=== PATIENT | female | born 1990 | race Two or more races ===

== ENCOUNTER 2018-05-20 12:05 | Inpatient (IN) | payer OTHER ==
[2018-05-20] MEDS ORDERED: AMPICILLIN SODIUM 2 GM VIAL ONE (12:39)
[2018-05-20] MEDS ORDERED: AMPICILLIN SODIUM 1 GM VIAL ONE ×2 (12:42→21:07)
[2018-05-20] MEDS: DEXTROSE 5%-LACTATED RINGERS 1,000 ML IV SCH ×2 (12:45→18:22)
[2018-05-20] MEDS ORDERED: AMPICILLIN - 2 GM in SODIUM CHLORIDE 100 ML IVPB ONE (13:00)
[2018-05-20] MEDS ORDERED: PROMETHAZINE HCL 25 MG/1 ML VIAL IVPUSH ONE (13:01)
[2018-05-20] MEDS ORDERED: BUTORPHANOL TARTRATE 1 MG/ML VIAL IVPUSH PRN (13:01)
--- NOTE | 2018-05-20 13:10 | HP ---
Past Medical History - Primary Care Physician PCP:: Carlos Mejias - Admission Chief Complaint: 38 weeks, labor History of Present Illness: 28 yo f 38 weeks, in labor cx 4 cm 80 vx -2 mi, fhr cat 1, contraction regular, moderate intensity, prental care in [facility], no complication History Source: Patient Limitations to Obtaining History: No Limitations - Past Surgical History Hx Myomectomy: No Hx Transabdominal Cerclage: No - Alcohol/Substance Use Hx Alcohol Use: No - Social History Usual Living Arrangement: Yes: With Spouse History of Recent Travel: No Home Medications - Allergies Allergies/Adverse Reactions: Allergies Allergy/AdvReac Type Severity Reaction Status Date / Time No Known Allergies Allergy Verified 05/20/18 12:35 - Home Medications Home Medications: Ambulatory Orders Ferrous Sulfate [Feosol] 325 mg PO BID 05/20/18 Vit/Iron Fum/Folic AC [ Tablet] 1 each PO DAILY 05/20/18 Review of Systems - Review of Systems Constitutional: reports: No Symptoms Eyes: reports: No Symptoms HENT: reports: No Symptoms Neck: reports: No Symptoms Cardiovascular: reports: No Symptoms Respiratory: reports: No Symptoms Gastrointestinal: reports: No Symptoms Genitourinary: reports: No Symptoms Breasts: reports: No Symptoms Reported Musculoskeletal: reports: No Symptoms Integumentary: reports: No Symptoms Neurological: reports: No Symptoms Endocrine: reports: No Symptoms Hematology/Lymphatic: reports: No Symptoms Psychiatric: reports: No Symptoms Physical Exam - Maternity Constitutional: Yes: Well Nourished, No Distress, Calm Eyes: Yes: WNL, Conjunctiva Clear, EOM Intact HENT: Yes: WNL, Atraumatic, Normocephalic Neck: Yes: WNL, Supple, Trachea Midline Cardiovascular: Yes: WNL, Regular Rate and Rhythm Breast(s): Yes: WNL - Abdominal Exam/OB Fundal Height: 38 Number of Fetuses: Single Presentation: Vertex Contractions: Yes Regularity: Regular Intensity: Mod/Strong Monitor Mode: External Heart Rate Location: [facility] Category: I - Vaginal Exam/OB Vaginal Bleediing: No Speculum Exam: No Dilatation (cm): 4 cm Effacement (%): 80 Amniotic Membrane Status: Bulging Presentation: Vertex/Position Station: -2 - Physical Exam Musculoskeletal: Yes: WNL Extremities: Yes: WNL Edema: LLE: Trace, RLE: Trace Deep Tendon Reflex Grade: Normal +2 Psychiatric: Yes: WNL Hemorrhage Risk Assessment - Risk Factors Medium Risk Factors: Yes: None High Risk Factors: Yes: None Risk Score: 1 Risk Level: Medium Risk Problem List - Problems (1) with 38 completed weeks gestation Code(s): Z3A.38 - 38 WEEKS GESTATION OF (2) Labor established Code(s): IKX2003 - Assessment/Plan admit for vaginal delivery, FHM, pain management
[2018-05-20 13:33] VITALS: BMI 31.1
[2018-05-20 13:42] LABS: INR 0.95 (0.82-1.09); PROTHROMBIN TIME (PATIENT) 10.7 SEC (9.7-13.0)
[2018-05-20 13:44] LABS: ACTIVATED PTT 23.1 SECONDS (25.2-36.5)
[2018-05-20 13:49] LABS: ANION GAP 11 (8-16); BLOOD UREA NITROGEN 6 mg/dL (7-18); CHLORIDE 104 mmol/L (98-107); CO2 22 mmol/L (21-32); CREATININE 0.8 mg/dL (0.55-1.02); GLUCOSE,RANDOM 84 mg/dL (74-106); POTASSIUM 3.6 mmol/L (3.5-5.1); SODIUM 137 mmol/L (136-145)
[2018-05-20 14:01] LABS: BASO % 0.2 % (0-2.0); EOS % 0.2 % (0-4.5); HEMATOCRIT 34.6 % (32.4-45.2); HEMOGLOBIN 11.6 GM/dL (10.7-15.3); LYMPH % 10.3 % (8-40); MCHC 33.5 g/dl (32.0-36.0); MEAN CELL VOLUME 92.5 fl (80-96); MEAN PLT VOLUME 10.6 fl (7.5-11.1); MONO % 3.3 % (3.8-10.2); PLATELET COUNT 188 K/MM3 (134-434); RBC 3.75 M/mm3 (3.60-5.2); RDW 15.9 % (11.6-15.6); WHITE BLOOD COUNT 10.4 K/mm3 (4.0-10.0)
[2018-05-20] MEDS ORDERED: TUBERCULIN PPD 5 TU/0.1ML SYRINGE (IN PATIENT USE ONLY) ID ONE (14:15)
[2018-05-20] MEDS: AMPICILLIN - 1 GM in SODIUM CHLORIDE 100 ML IVPB SCH ×2 (17:00→21:13)
[2018-05-20] MEDS: ELECTROLYTE-148 SOLN 1,000 ML IV SCH (20:00)
--- NOTE | 2018-05-20 20:02 | PN ---
Ante-Partal Exam - Subjective Subjective: Pt with painful contractions. Vital Signs: Vital Signs Temperature 98.5 F 05/20/18 18:00 Pulse Rate 99 H 05/20/18 19:00 Respiratory Rate 20 05/20/18 19:00 Blood Pressure 127/70 05/20/18 19:00 O2 Sat by Pulse Oximetry (%) Bleeding: No Headache: No Visual changes: No Right upper quadrant pain: No Pain (scale 1-10): 150 - Contractions Contractions: Yes Regularity: Regular Intensity: Mod/Strong Monitor Mode: External - Exam during Labor Heart Rate: 150 Variability: Moderate Heart Rate Location: Midline Category: I Monitor Accelerations: Present Monitor Decelerations: None Exam: Vaginal Dilatation (cm): 5 Effacement (%): 90 Amniotic Membrane Status: Intact Presentation: Vertex Station: 0 Remarks: Adequate pelvimetry - Intrapartum Hemorrhage Risk Medium Risk Factors: None High Risk Factors: None Risk Score: 0 Risk Level: Low Risk - Assessment/Plan Assessment/Plan: 28yo at EGA 38w2d in spont labor. The pt has a catgory I tracing. Fetus requires no intervention. We discussed the r/b/a of labor and pain mgt options. Pt requested epidural. Plan to monitor labor. Anesthesia consult called.
[2018-05-20] MEDS ORDERED: FENTANYL/BUPIVACAINE/NS/PF - PCEA - 50 ML DISP.SYRIN EP ONE (20:03)
[2018-05-20] MEDS: FENTANYL/BUPIVACAINE/NS/PF - PCEA - 50 ML DISP.SYRIN EP SCH (20:30)
[2018-05-20] MEDS ORDERED: NALOXONE HCL 0.4 MG/ML VIAL IVPUSH PRN (21:10)
--- NOTE | 2018-05-20 21:52 | PN ---
Ante-Partal Exam - Subjective Subjective: No complaints, s/p epidural Vital Signs: Vital Signs Temperature 98.9 F 05/20/18 21:00 Pulse Rate 88 05/20/18 21:00 Respiratory Rate 18 05/20/18 21:00 Blood Pressure 109/84 05/20/18 21:00 O2 Sat by Pulse Oximetry (%) 100 05/20/18 21:00 Bleeding: No Headache: No Visual changes: No Right upper quadrant pain: No Pain (scale 1-10): 0 - Contractions Contractions: Yes Regularity: Regular Intensity: Moderate Monitor Mode: External - Exam during Labor Heart Rate: 150 Variability: Moderate Heart Rate Location: Midline Category: I Monitor Accelerations: Absent Monitor Decelerations: Variable Exam: Vaginal Dilatation (cm): 7 Effacement (%): 90 Amniotic Membrane Status: Ruptured (AROM) Amniotic Fluid: Clear Presentation: Vertex Station: 0 - Intrapartum Hemorrhage Risk Medium Risk Factors: None High Risk Factors: None Risk Score: 0 Risk Level: Low Risk - Assessment/Plan Assessment/Plan: 28yo is spont labor progressing in active phase. Fetus requires no intervention. Continue to monitor progress.
[2018-05-20] MEDS ORDERED: OXYTOCIN 20 UNITS in 0.9% NS 20 UNIT/1,000 ML INFUS.BAG IV ONE (23:55)
[2018-05-21] MEDS: OXYTOCIN 20 UNITS in 0.9% NS 20 UNIT/1,000 ML INFUS.BAG IV SCH (00:45)
[2018-05-21] MEDS ORDERED: OXYTOCIN 20 UNITS in 0.9% NS 20 UNIT/1,000 ML INFUS.BAG IV ONE (02:40)
[2018-05-21] MEDS: AMPICILLIN - 1 GM in SODIUM CHLORIDE 100 ML IVPB SCH (02:43)
[2018-05-21] MEDS ORDERED: BENZOCAINE 20% 57 GM BOTTLE TP PRN (03:01)
[2018-05-21] MEDS ORDERED: BISACODYL 10 MG SUPP.RECT RC PRN (03:01)
[2018-05-21] MEDS ORDERED: BENZOCAINE 28 GM HEMORRHOIDAL OINTMENT TP PRN (03:01)
[2018-05-21] MEDS ORDERED: ACETAMINOPHEN 325 MG TABLET (FP) PO PRN (03:01)
[2018-05-21] MEDS ORDERED: IBUPROFEN 600 MG TABLET (FP) PO PRN (03:01)
[2018-05-21] MEDS ORDERED: WITCH HAZEL 50% (TUCKS) 40 PAD/JAR PAD TP PRN (03:01)
[2018-05-21] MEDS ORDERED: METHYLERGONOVINE MALEATE 0.2 MG/1 ML AMP IM PRN (03:01)
--- NOTE | 2018-05-21 03:01 | PN ---
Delivery - Delivery Vaginal Delivery: No Problems, Spontaneous Type of Anesthesia: Epidural Episiotomy/Laceration: None EBL (cc): 300 Delivery, Single - Stages of Labor Date 1st Stage Initiatied: 05/21/18 Time 1st Stage Initiated: 05:00 Date 2nd Stage Initiated: 05/21/18 Time 2nd Stage Initiated: 23:50 Date of Delivery: 05/21/18 Time of Delivery: 00:39 Date Placenta Delivered: 05/21/18 Time Placenta Delivered: 00:41 Placenta: Yes: Spontaneous, Normal Configuration - Condition of Infant Developer Advocate/Microsoft Access Developer Present: No Gender: Female Weight: 2.75 kg Position: Right, OA Total Hours ROM (Hrs/Mins): 2h 54m - 1 Minute Total Score: 9 5 Minutes Total Score: 9 - [place] Feeding Plan Initial Plan: Exclusive throughout hospitalization Benefits of Exclusively reinforced: Yes
[2018-05-21] MEDS: PRENATAL VITAMINS W/ FOLIC ACID TABLET (FP) PO SCH (10:43)
--- NOTE | 2018-05-22 00:47 | PN ---
Post Progress Note - Subjective Subjective: Patient without acute complaints. Reports tolerating oral intake without nausea or vomiting. Ambulating without dizziness. Denies fevers or chills. Pain well controlled with oral pain medication. without difficulty. Passing flatus. Post Day: 1 Type of Delivery: Vital Signs: Vital Signs Temperature 97.9 F 05/21/18 21:30 Pulse Rate 92 H 05/21/18 21:30 Respiratory Rate 20 05/21/18 21:30 Blood Pressure 106/63 05/21/18 21:30 O2 Sat by Pulse Oximetry (%) 100 05/21/18 01:45 Breast Exam: Yes: Soft Uterus: Yes: Fundus Firm, Fundus below umbilicus Abdomen/GI: Yes: Abdomen soft, Passing flatus, Tolerating PO. No: Abdominal Distention, Tender Lochia: Yes: Serosa Lochia, amount: Small Extremities: Yes: Calves non-tender Activity: Ambulating - Labs Labs: CBC WBC 10.4 K/mm3 (4.0-10.0) H 05/20/18 13:05 RBC 3.75 M/mm3 (3.60-5.2) 05/20/18 13:05 Hgb 11.6 GM/dL (10.7-15.3) 05/20/18 13:05 Hct 34.6 % (32.4-45.2) 05/20/18 13:05 MCV 92.5 fl (80-96) 05/20/18 13:05 MCH 31.0 pg (25.7-33.7) 05/20/18 13:05 MCHC 33.5 g/dl (32.0-36.0) 05/20/18 13:05 RDW 15.9 % (11.6-15.6) H 05/20/18 13:05 Plt Count 188 K/MM3 (134-434) 05/20/18 13:05 MPV 10.6 fl (7.5-11.1) 05/20/18 13:05 Absolute Neuts (auto) 8.9 # 05/20/18 13:05 Neutrophils % 86.0 % (42.8-82.8) H 05/20/18 13:05 Lymphocytes % 10.3 % (8-40) 05/20/18 13:05 Monocytes % 3.3 % (3.8-10.2) L 05/20/18 13:05 Eosinophils % 0.2 % (0-4.5) 05/20/18 13:05 Basophils % 0.2 % (0-2.0) 05/20/18 13:05 Nucleated RBC % 0 % (0-0) 05/20/18 13:05 Assessment/Plan 28 yo PPD # 1 s/p , afebrile, vital signs stable, doing well 1. Continue routine care. 2. AM CBC without signs of anemia 3. Rh positive status, no rhogam indicated. 4. Encourage ambulation 5. Continue oral pain medication 6. Anticipate discharge home day #2
[2018-05-22 07:21] LABS: BASO % 0.3 % (0-2.0); EOS % 1.5 % (0-4.5); HEMATOCRIT 34.1 % (32.4-45.2); HEMOGLOBIN 11.3 GM/dL (10.7-15.3); LYMPH % 18.4 % (8-40); MCH 30.6 pg (25.7-33.7); MCHC 33.2 g/dl (32.0-36.0); MEAN CELL VOLUME 92.3 fl (80-96); MEAN PLT VOLUME 10.2 fl (7.5-11.1); MONO % 5.8 % (3.8-10.2); PLATELET COUNT 170 K/MM3 (134-434); RDW 16.3 % (11.6-15.6); WHITE BLOOD COUNT 12.2 K/mm3 (4.0-10.0)
[2018-05-22] MEDS: PRENATAL VITAMINS W/ FOLIC ACID TABLET (FP) PO SCH (09:45)
[2018-05-22] MEDS: DEXTROSE 5%-LACTATED RINGERS 1,000 ML IV SCH ×2 (20:26→20:27)
[2018-05-22] MEDS: ELECTROLYTE-148 SOLN 1,000 ML IV SCH (20:27)
[2018-05-22] MEDS: FENTANYL/BUPIVACAINE/NS/PF - PCEA - 50 ML DISP.SYRIN EP SCH (20:27)
[2018-05-22] MEDS: OXYTOCIN 20 UNITS in 0.9% NS 20 UNIT/1,000 ML INFUS.BAG IV SCH (20:27)
[2018-05-22] MEDS ORDERED: SENNOSIDES/DOCUSATE COMBO (SENNA PLUS) TABLET (UD) PO PRN (22:00)
--- NOTE | 2018-05-23 07:36 | DS ---
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 Vital Signs: Vital Signs Temperature 98.5 F 05/22/18 22:00 Pulse Rate 86 05/22/18 22:00 Respiratory Rate 18 05/22/18 22:00 Blood Pressure 120/70 05/22/18 22:00 O2 Sat by Pulse Oximetry (%) 100 05/21/18 01:45 Constitutional: Yes: Well Nourished, No Distress, Calm Eyes: Yes: WNL, Conjunctiva Clear, EOM Intact HENT: Yes: WNL, Atraumatic, Normocephalic Neck: Yes: WNL, Supple, Trachea Midline Cardiovascular: Yes: WNL, Regular Rate and Rhythm Respiratory: Yes: WNL, Regular, CTA Bilaterally Gastrointestinal: Yes: WNL ...Rectal Exam: Yes: WNL Renal/: Yes: WNL ....Post : Yes: Uterus firm, Uterus non-tender, Slight lochia rubra Breast(s): Yes: WNL Musculoskeletal: Yes: WNL Extremities: Yes: WNL Edema: No Integumentary: Yes: WNL Neurological: Yes: WNL, Alert, Oriented ...Motor Strength: WNL Psychiatric: Yes: WNL, Alert, Oriented Labs: CBC, BMP 05/22/18 06:30 05/20/18 13:05 Delivery - Delivery Vaginal Delivery: No Problems, Spontaneous Type of Anesthesia: Epidural Episiotomy/Laceration: None EBL (cc): 300 Delivery, Single - Stages of Labor Date 1st Stage Initiatied: 05/21/18 Time 1st Stage Initiated: 05:00 Date 2nd Stage Initiated: 05/21/18 Time 2nd Stage Initiated: 23:50 Date of Delivery: 05/21/18 Time of Delivery: 00:39 Time Placenta Delivered: 00:41 Placenta: Yes: Spontaneous, Normal Configuration - 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 [employer] Present: No Gender: Female Weight: 6 lb 1 oz Position: Right, OA Total Hours ROM (Hrs/Mins): 2h 54m - 1 Minute Total Score: 9 5 Minutes Total Score: 9 - Feeding Plan Initial Plan: Exclusive throughout hospitalization Benefits of Exclusively reinforced: Yes Discharge Summary Reason For Visit: LABOR Current Active Problems Labor established (Acute) with 38 completed weeks gestation (Acute) Procedures: Principal: Condition: Good - Instructions Diet, Activity, Other Instructions: regular diet, no intercourse , follow up office 4 weeks Referrals: Flavio Robins MD [Staff Physician] - Disposition: HOME - Home Medications Comprehensive Discharge Medication List: Ambulatory Orders Ferrous Sulfate [Feosol] 325 mg PO BID 05/20/18 Vit/Iron Fum/Folic AC [ Tablet] 1 each PO DAILY 05/20/18 Ibuprofen [Motrin -] 600 mg PO TID #21 tablet 05/22/18
[2018-05-23 08:41] VITALS: BP 119/66; PULSE 96; TEMP 98.8
[2018-05-23] MEDS: PRENATAL VITAMINS W/ FOLIC ACID TABLET (FP) PO SCH (09:40)
== END 2018-05-23 12:10 | disposition home or self-care (01) | DRG 560 ==
LOC: JDEL 12:05 → JLDR 12:15 → J3W 05-21 02:55
PROVIDERS: ADMIT Obstetrics & Gynecology; ATTEND Obstetrics & Gynecology
PROC: 10E0XZZ Delivery of Products of Conception, External Approach (ICD-10-PCS; principal; 2018-05-21)
DX: O36.0930 Maternal care for other rhesus isoimmunization, third trimester, not applicable or unspecified (principal); Z3A.38 38 weeks gestation of pregnancy; Z37.0 Single live birth
CPT/HCPCS: 36415; 59409; 80048; 85025; 85610; 85730; 86593; 86850; 86900; 86901

== ENCOUNTER 2020-08-20 02:16 | Inpatient (IN) | payer OTHER ==
[2020-08-20] MEDS ORDERED: ELECTROLYTE-148 SOLN 500 ML IV ONE (04:30)
[2020-08-20] MEDS ORDERED: AMPICILLIN SODIUM 2 GM VIAL ONE (05:53)
[2020-08-20] MEDS ORDERED: SODIUM CHLORIDE 100 ML IVPB ONE (05:53)
[2020-08-20] MEDS ORDERED: PROMETHAZINE HCL 25 MG/1 ML VIAL ONE (06:00)
[2020-08-20] MEDS ORDERED: BUTORPHANOL TARTRATE 2 MG/ML VIAL ONE (06:00)
[2020-08-20 06:01] LABS: BASO % 0.2 % (0-2.0); EOS % 0.3 % (0-4.5); HEMATOCRIT 32.1 % (32.4-45.2); HEMOGLOBIN 10.7 GM/dL (10.7-15.3); LYMPH % 15.6 % (8-40); MCH 30.7 pg (25.7-33.7); MCHC 33.2 g/dl (32.0-36.0); MEAN CELL VOLUME 92.5 fl (80-96); MEAN PLT VOLUME 10.8 fl (7.5-11.1); MONO % 4.6 % (3.8-10.2); NEUT % 79.3 % (42.8-82.8); PLATELET COUNT 212 K/MM3 (134-434); RBC 3.47 M/mm3 (3.60-5.2); RDW 15.5 % (11.6-15.6); WHITE BLOOD COUNT 11.2 K/mm3 (4.0-10.0)
--- NOTE | 2020-08-20 06:01 | PN ---
Progress Note (short form) - Note Progress Note: cx 7 cm 80 bx -2, requesting pain meds , fhr cat 1, regular contraction
[2020-08-20] MEDS ORDERED: AMPICILLIN - 2 GM in SODIUM CHLORIDE 100 ML IVPB ONE (06:02)
[2020-08-20] MEDS ORDERED: BUTORPHANOL TARTRATE 1 MG/ML VIAL IVPUSH ONE (06:03)
[2020-08-20] MEDS ORDERED: PROMETHAZINE HCL 25 MG/1 ML VIAL IVPUSH ONE (06:03)
--- NOTE | 2020-08-20 06:04 | HP ---
Past Medical History - Primary Care Physician PCP:: Carlos Mejias - Admission Chief Complaint: 39 weeks, labor History of Present Illness: 30 yo f 39 weeks,in labor , no rom, no bleeding , fhr cat 1, regular contraction cx 7 cm 80 vx -2 mi , fhr cat 1, History Source: Patient Limitations to Obtaining History: No Limitations - Past Medical History ...: 2 ...Para: 1 ...Term: 1 - Past Surgical History Hx Myomectomy: No Hx Transabdominal Cerclage: No - Smoking History Smoking history: Never smoked Have you smoked in the past 12 months: No - Alcohol/Substance Use Hx Alcohol Use: No - Social History Usual Living Arrangement: Yes: With Spouse History of Recent Travel: No Home Medications - Allergies Allergies/Adverse Reactions: Allergies Allergy/AdvReac Type Severity Reaction Status Date / Time No Known Allergies Allergy Verified 05/20/18 12:35 - Home Medications Home Medications: Ambulatory Orders Vit/Iron Fum/Folic AC [ Tablet] 1 each PO DAILY 05/20/18 Review of Systems - Review of Systems Constitutional: reports: No Symptoms Eyes: reports: No Symptoms HENT: reports: No Symptoms Neck: reports: No Symptoms Cardiovascular: reports: No Symptoms Respiratory: reports: No Symptoms Gastrointestinal: reports: No Symptoms Genitourinary: reports: No Symptoms Breasts: reports: No Symptoms Reported Musculoskeletal: reports: No Symptoms Integumentary: reports: No Symptoms Neurological: reports: No Symptoms Endocrine: reports: No Symptoms Hematology/Lymphatic: reports: No Symptoms Psychiatric: reports: No Symptoms Physical Exam - Maternity Constitutional: Yes: Well Nourished Eyes: Yes: WNL HENT: Yes: WNL Neck: Yes: WNL Cardiovascular: Yes: WNL Lungs: Normal air movement Breast(s): Yes: WNL - Abdominal Exam/OB Fundal Height: 38 Number of Fetuses: Single Presentation: Vertex Contractions: Yes Regularity: Regular Intensity: Strong Monitor Mode: External Heart Rate Location: [facility] Category: I Accelerations: Non-Uniform Decelerations: None - Vaginal Exam/OB Vaginal Bleeding: Bloody Show Speculum Exam: No Dilatation (cm): 7 Effacement (%): 80 Amniotic Membrane Status: Intact Nitrazine Test: Negative Presentation: Vertex/Position Station: -2 - Physical Exam Musculoskeletal: Yes: WNL Extremities: Yes: WNL Edema: Yes Edema: LLE: Trace, RLE: Trace Deep Tendon Reflex Grade: Normal +2 Psychiatric: Yes: WNL Hemorrhage Risk Assessment - Risk Factors Medium Risk Factors: Yes: None High Risk Factors: Yes: None Risk Score: 1 Risk Level: Medium Risk Problem List - Problems (1) with 39 completed weeks gestation Code(s): Z3A.39 - 39 WEEKS GESTATION OF (2) Labor established Code(s): AAU4515 - Assessment/Plan admit GBS positive , iv Amp. fhm pain management
[2020-08-20 06:11] LABS: INR 0.98 (0.83-1.09); PROTHROMBIN TIME (PATIENT) 11.6 SEC (9.7-13.0)
[2020-08-20 06:13] LABS: ACTIVATED PTT 25.1 SECONDS (25.2-36.5)
[2020-08-20] MEDS ORDERED: DEXTROSE 5%-LACTATED RINGERS 1,000 ML IV SCH (06:15)
[2020-08-20 06:22] LABS: BLOOD UREA NITROGEN 11.5 mg/dL (7-18); CALCIUM 8.7 mg/dL (8.5-10.1); CREATININE 0.8 mg/dL (0.55-1.3); POTASSIUM 4.6 mmol/L (3.5-5.1)
[2020-08-20] MEDS ORDERED: NALOXONE HCL 0.4 MG/ML VIAL IVPUSH PRN (06:25)
[2020-08-20] MEDS ORDERED: BUPIVACAINE HCL/PF 0.25% (2.5MG/ML) 10 ML VIAL ONE (06:28)
[2020-08-20] MEDS ORDERED: FENTANYL/BUPIVACAINE/NS/PF - PCEA - 50 ML DISP.SYRIN EP SCH (06:30)
[2020-08-20 06:42] VITALS: BMI 32.3
[2020-08-20] MEDS ORDERED: FENTANYL/BUPIVACAINE/NS/PF - PCEA - 50 ML DISP.SYRIN EP ONE (06:52)
[2020-08-20] MEDS ORDERED: ELECTROLYTE-148 SOLN 1,000 ML IV SCH (07:15)
--- NOTE | 2020-08-20 07:59 | PN ---
Progress Note (short form) - Note Progress Note: cx 9 cm 100 vx 0 mi , arom, clear, fhr cat1,regular contraction Problem List - Problems (1) with 39 completed weeks gestation Code(s): Z3A.39 - 39 WEEKS GESTATION OF (2) Labor established Code(s): [id number] -
[2020-08-20] MEDS ORDERED: OXYTOCIN 30 UNITS in 0.9% NS 30 UNIT/500 ML INFUS.BAG IVPB SCH (08:30)
[2020-08-20] MEDS ORDERED: OXYTOCIN 20 UNITS in 0.9% NS 20 UNIT/1,000 ML INFUS.BAG IV ONE (08:35)
[2020-08-20] MEDS ORDERED: PCA PUMP NR ONE (10:28)
[2020-08-20] MEDS ORDERED: BISACODYL 10 MG SUPP.RECT RC PRN (10:33)
[2020-08-20] MEDS ORDERED: METHYLERGONOVINE MALEATE 0.2 MG/1 ML AMP IM PRN (10:33)
[2020-08-20] MEDS ORDERED: ACETAMINOPHEN 325 MG TABLET (FP) PO PRN (10:33)
[2020-08-20] MEDS ORDERED: BENZOCAINE 20% 57 GM BOTTLE TP PRN (10:33)
[2020-08-20] MEDS ORDERED: IBUPROFEN 600 MG TABLET (FP) PO PRN (10:33)
[2020-08-20] MEDS ORDERED: WITCH HAZEL 50% (TUCKS) 40 PAD/JAR PAD TP PRN (10:33)
[2020-08-20] MEDS ORDERED: BENZOCAINE 28 GM HEMORRHOIDAL OINTMENT TP PRN (10:33)
--- NOTE | 2020-08-20 10:38 | PN ---
Delivery - Delivery Vaginal Delivery: Spontaneous (cx full , head on pernium. head delivered , nasopharynx suctioned , SRINIVASA , ant and post shoulder with no difficulty , live baby girl apgr 9/9 , placenta complete , first degree laceration with 20 chromic , ebl 300 cc , no complication, baby bonded with mom) Type of Anesthesia: Epidural Episiotomy/Laceration: 1st degree EBL (cc): 300 Delivery, Single - [place] Feeding Plan Initial Plan: Elected not to breastfeed exclusively throughout hospitalization
[2020-08-20] MEDS ORDERED: OXYTOCIN IV SCH (10:45)
[2020-08-20] MEDS ORDERED: LACTATED RINGERS IV SCH (10:45)
[2020-08-20] MEDS ORDERED: OXYTOCIN 20 UNITS in 0.9% NS 20 UNIT/1,000 ML INFUS.BAG IV SCH (10:45)
[2020-08-20] MEDS ORDERED: DEXTROSE IV SCH (10:45)
[2020-08-20 11:02] LABS: CORD BASE EXCESS -3.7 mmol/L (0-2); CORD HCO3 22.8 mmHg (20-29); CORD PCO2 46.5 mmHg (30-78); CORD pH 7.308 (7.14-7.44)
[2020-08-20 11:12] LABS: CORD BASE EXCESS -6.2 mmol/L (0-2); CORD HCO3 21.3 mmHg (20-29); CORD PCO2 49.4 mmHg (30-78); CORD pH 7.252 (7.14-7.44)
[2020-08-20] MEDS: FERROUS SO4 325 MG TABLET (FP) PO SCH (20:59)
[2020-08-21 08:23] LABS: BASO % 0.3 % (0-2.0); EOS % 1.4 % (0-4.5); HEMATOCRIT 30.1 % (32.4-45.2); HEMOGLOBIN 9.9 GM/dL (10.7-15.3); LYMPH % 14.8 % (8-40); MCH 31.3 pg (25.7-33.7); MEAN CELL VOLUME 94.8 fl (80-96); MEAN PLT VOLUME 9.8 fl (7.5-11.1); MONO % 5.5 % (3.8-10.2); PLATELET COUNT 168 K/MM3 (134-434); RBC 3.17 M/mm3 (3.60-5.2); RDW 15.2 % (11.6-15.6); WHITE BLOOD COUNT 13.1 K/mm3 (4.0-10.0)
[2020-08-21] MEDS: FERROUS SO4 325 MG TABLET (FP) PO SCH ×2 (09:53→22:49)
[2020-08-21] MEDS: PRENATAL VITAMINS W/ FOLIC ACID TABLET (FP) PO SCH (09:53)
--- NOTE | 2020-08-21 17:26 | PN ---
Progress Note (short form) - Note Progress Note: ppd 1 no c/o doing well, ambulating CBC, BMP 08/21/20 07:28 08/20/20 05:30 Last Vital Signs Temp Pulse Resp BP Pulse Ox 98.0 F 93 H 18 115/55 L 100 08/21/20 10:00 08/21/20 10:00 08/21/20 10:00 08/21/20 10:00 08/20/20 11:30 abdomen soft, no distension, no cva uterus firm, non tender lochia mild no calf tenderness plan ambulate plan for d/c home in am Problem List - Problems (1) with 39 completed weeks gestation Code(s): Z3A.39 - 39 WEEKS GESTATION OF (2) Labor established Code(s): [id number] -
[2020-08-21] MEDS ORDERED: SENNOSIDES/DOCUSATE COMBO (SENNA PLUS) TABLET (UD) PO PRN (22:00)
[2020-08-22] MEDS: PRENATAL VITAMINS W/ FOLIC ACID TABLET (FP) PO SCH (09:09)
[2020-08-22] MEDS: FERROUS SO4 325 MG TABLET (FP) PO SCH (09:09)
--- NOTE | 2020-08-22 11:53 | DS ---
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 Vital Signs: Vital Signs Temperature 98.6 F 08/21/20 20:19 Pulse Rate 90 08/21/20 20:19 Respiratory Rate 20 08/21/20 20:19 Blood Pressure 110/66 08/21/20 20:19 O2 Sat by Pulse Oximetry (%) 100 08/20/20 11:30 Constitutional: Yes: Well Nourished, No Distress, Calm Eyes: Yes: WNL, Conjunctiva Clear, EOM Intact HENT: Yes: WNL, Atraumatic, Normocephalic Neck: Yes: WNL, Supple, Trachea Midline Cardiovascular: Yes: WNL, Regular Rate and Rhythm Respiratory: Yes: WNL, Regular, CTA Bilaterally Gastrointestinal: Yes: WNL ...Rectal Exam: Yes: WNL Renal/: Yes: WNL ....Post : Yes: Uterus firm, Uterus non-tender, Slight lochia rubra Breast(s): Yes: WNL Musculoskeletal: Yes: WNL Extremities: Yes: WNL Integumentary: Yes: WNL Neurological: Yes: WNL, Alert, Oriented ...Motor Strength: WNL Psychiatric: Yes: WNL, Alert, Oriented Labs: CBC, BMP 08/21/20 07:28 08/20/20 05:30 Delivery - Delivery Vaginal Delivery: Spontaneous (cx full , head on pernium. head delivered , nasopharynx suctioned , SRINIVASA , ant and post shoulder with no difficulty , live baby girl apgr 9/9 , placenta complete , first degree laceration with 20 chromic , ebl 300 cc , no complication, baby bonded with mom) Type of Anesthesia: Epidural Episiotomy/Laceration: 1st degree EBL (cc): 300 Delivery, Single - Stages of Labor Date 1st Stage Initiatied: 08/20/20 Time 1st Stage Initiated: 00:00 Date 2nd Stage Initiated: 08/20/20 Time 2nd Stage Initiated: 09:55 Date of Delivery: 08/20/20 Time of Delivery: 10:05 Time Placenta Delivered: 10:07 Placenta: Yes: Spontaneous - Condition of Infant Service Support Representative/Final Assembly Worker Present: No Gender: Female Weight: 6 lb 4 oz Position: Right, OA Total Hours ROM (Hrs/Mins): 2H17M - 1 Minute Total Score: 9 5 Minutes Total Score: 9 - [place] Feeding Plan Initial Plan: Elected not to breastfeed exclusively throughout hospitalization Discharge Summary Problems reviewed: Yes Reason For Visit: LABOR ADMIT Current Active Problems Labor established (Acute) with 39 completed weeks gestation (Acute) Procedures: Principal: Hospital Course: no complication Condition: Good - Instructions Diet, Activity, Other Instructions: regular dioet, no intercourse, if fever , pain, heavy vaginal bleeding call MD follow up [facility] 4 weeks Referrals: Carlos Mejias MD [Staff Physician] - Disposition: HOME - Home Medications Comprehensive Discharge Medication List: Ambulatory Orders Vit/Iron Fum/Folic AC [ Tablet] 1 each PO DAILY 05/20/18 Ibuprofen [Motrin -] 600 mg PO QID #28 tablet 08/21/20 Miscellaneous Medical Supply [Breast Pump, Electronic] 1 each NR ASDIR #1 unit 08/21/20
[2020-08-22 12:14] VITALS: BP 108/70; PULSE 98; TEMP 98
== END 2020-08-22 12:40 | disposition home or self-care (01) | DRG 560 ==
LOC: JDEL 02:16 → JLDR 03:00 → J3W 12:30
PROVIDERS: ADMIT Obstetrics & Gynecology; ATTEND Obstetrics & Gynecology
PROC: 10907ZC Drainage of Amniotic Fluid, Therapeutic from Products of Conception, Via Natural or Artificial Opening (ICD-10-PCS; principal; 2020-08-20)
PROC: 10E0XZZ Delivery of Products of Conception, External Approach (ICD-10-PCS; 2020-08-20)
PROC: 0HQ9XZZ Repair Perineum Skin, External Approach (ICD-10-PCS; 2020-08-20)
DX: O70.0 First degree perineal laceration during delivery (principal); O98.82 Other maternal infectious and parasitic diseases complicating childbirth; B95.1 Streptococcus, group B, as the cause of diseases classified elsewhere; Z3A.39 39 weeks gestation of pregnancy; Z37.0 Single live birth
CPT/HCPCS: 36415; 36600; 59409; 80048; 82803; 85025; 85610; 85730; 86780; 86850; 86900; 86901; 87389; C9803; U0003